=== PATIENT | female | born 1955 ===

== ENCOUNTER 2016-12-16 06:14 | Emergency (ER) | payer MEDICARE, MEDICAID ==
[2016-12-16 06:14] VITALS: BMI 24.0
[2016-12-16 06:19] VITALS: BP 130/74; PULSE 68; RESP 16; TEMP 98.4; O2SAT 99
[2016-12-16] MEDS ORDERED: Lidocaine 5% Patch TD STA (07:47)
--- NOTE | 2016-12-16 07:53 | ED PDOC ---
Upper Extremity Pain/Injury Time Seen by Provider: 12/16/16 07:16 Chief Complaint (Nursing): Upper Extremity Problem/Injury Chief Complaint (Provider): Upper Extremity Problem/Injury History Per: Patient History/Exam Limitations: no limitations Onset/Duration Of Symptoms: Days (x8 months) Current Symptoms Are (Timing): Still Present Additional Complaint(s): Quin Parsons is a 61 year old female with a past medical history of anemia, diabetes, and ulcers presenting to the ED for an evaluation of chronic left upper arm pain radiating to her left shoulder and chest starting 8 months ago, worsening over the past month. The patient states she hears a cracking in her left shoulder, she has associated difficulty breathing due to the pain, and was shaking uncontrollably when EMS saw her. The patient also states when she visited the emergency room at [facility] 3 weeks prior to arrival, a physician found a needle stuck in her left upper arm. The patient then explained that she had a tummy tuck surgery performed in 2002 that went wrong causing the needle to be stuck in her left upper arm. Post surgery, the patient reports being in a coma for 5 months. The patient was told to visit her PMD and was prescribed Neurontin 600 mg which she takes once a day, Tylenol 500 mg 1 tablet taken once every 4 hours, and Naprosyn which she takes 2 or 3 times a day for the pain, all taken without relief. The patient is requesting medication for her pain. PMD: Inna Frausto MD Past Medical History Reviewed: Historical Data, Nursing Documentation, Vital Signs Vital Signs: Last Vital Signs Temp 98.4 F 12/16/16 06:15 Pulse 68 12/16/16 06:15 Resp 16 12/16/16 06:15 BP 130/74 12/16/16 06:15 Pulse Ox 99 12/16/16 06:15 - Medical History PMH: Anxiety, Arthritis (BACK), Atrial Fibrillation, Back Problems, Bipolar Disorder, COPD, Dementia, Depression, Diabetes, Diverticulitis, Gastrointestinal Ulcer, HTN, Malignancy, Obstructive Bowel, Pneumonia, Pulmonary Embolism, Seizures, Chronic Pain (on Methadone) Denies: Anemia, HIV, Hyperthyroidism, Hypothyroidism, Chronic Kidney Disease , Sickle Cell Disease, Sexually Transmitted Disease - Surgical History Surgical History: Appendectomy, CABG, Tonsillectomy Denies: Carotid Endarterectomy, Cholecystectomy, Coronary Stent - Family History Family History: States: Unknown Family Hx - Social History Current smoker - smoking cessation education provided: Yes Alcohol: None Drugs: Denies - Immunization History Hx Tetanus Toxoid Vaccination: No Hx Influenza Vaccination: No Hx Pneumococcal Vaccination: No - Home Medications Home Medications: Ambulatory Orders Medication Instructions Recorded Levothyroxine [Synthroid] 75 mcg PO DAILY 10/06/15 Montelukast [Singulair] 10 mg PO DAILY 10/06/15 Trazodone HCl 150 mg PO HS 10/06/15 Venlafaxine [Effexor XR] 150 mg PO DAILY 10/06/15 Estrogen,Con/M-Progest Acet 1 tab PO DAILY 12/11/15 [Prempro 0.45-1.5 mg Tablet] Gabapentin 600 mg PO DAILY 12/11/15 Telmisartan [Micardis] 40 mg PO DAILY 03/14/16 Esomeprazole Magnesium [Nexium] 40 mg PO DAILY 07/18/16 Metoprolol Succinate 50 mg PO DAILY 08/01/16 Hydrochlorothiazide [Microzide] 12.5 mg PO DAILY 09/05/16 Nicotine 7 mg/24 hr [Nicoderm CQ] 1 patch TD DAILY #30 patch 09/05/16 Naproxen [Naprosyn] 1 tab PO BID PRN #20 tab 11/28/16 DiphenhydrAMINE [Benadryl] 25 mg PO Q6 PRN #20 cap 12/08/16 Epinephrine [Epipen] 0.3 mg IJ ONCE PRN #1 auto.injct 12/08/16 predniSONE [predniSONE Tab] 40 mg PO DAILY #8 tab 12/08/16 Acetaminophen [Tylenol 325mg tab] 650 mg PO Q6H PRN #50 tab 12/16/16 Ketorolac Tromethamine [Toradol] 10 mg PO Q6H PRN #19 tab 12/16/16 Lidocaine 5% [Lidoderm] 1 ea TD DAILY #10 patch 12/16/16 - Allergies Allergies/Adverse Reactions: Allergies Allergy/AdvReac Type Severity Reaction Status Date / Time iodine Allergy Intermediate ANAPHYLAXIS Verified 11/28/16 12:58 Sulfa (Sulfonamide Allergy Intermediate ANAPHYLAXIS Verified 11/28/16 12:58 Antibiotics) codeine Allergy Verified 11/28/16 12:58 seafood Allergy Intermediate ANAPHYLAXIS Uncoded 08/28/17 12:58 yucca Allergy Uncoded 12/08/16 12:11 Review of Systems ROS Statement: Except As Marked, All Systems Reviewed And Found Negative Respiratory: Positive for: Other (difficulty breathing) Musculoskeletal: Positive for: Arm Pain (left upper arm pain radiating to left shoulder and chest) Physical Exam - Reviewed Nursing Documentation Reviewed: Yes Vital Signs Reviewed: Yes - Physical Exam Appears: Positive for: No Acute Distress Head Exam: Positive for: ATRAUMATIC, NORMOCEPHALIC Eye Exam: Negative for: PERRL (pupils: 2.5 mm nonreactive) ENT: Positive for: Normal ENT Inspection Neck: Positive for: Normal, Supple Cardiovascular/Chest: Positive for: Regular Rate, Rhythm, Chest Non Tender. Negative for: Murmur Respiratory: Positive for: Normal Breath Sounds. Negative for: Respiratory Distress Back: Positive for: Normal Inspection Extremity: Positive for: Normal ROM Neurologic/Psych: Positive for: Alert, Oriented (x3). Negative for: Motor/ Sensory Deficits - ECG O2 Sat by Pulse Oximetry: 99 (RA) Pulse Ox Interpretation: Normal Medical Decision Making Medical Decision Making: Time: 07:16 Impression: Upper Extremity Problem/Injury Plan: * Lidoderm 1 ea TD Once * Toradol 60 mg IM * Tylenol 650 mg PO * Reevaluation From previous visit, Xrays show no acute fracture, joints are normal, pt does have two pieces of foreign body material in her left upper arm. Scribe Attestation: Documented by Tanisha Ley, acting as a scribe for Soledad Cavazos MD. Provider Scribe Attestation: All medical record entries made by the Scribe were at my direction and personally dictated by me. I have reviewed the chart and agree that the record accurately reflects my personal performance of the history, physical exam, medical decision making, and the department course for this patient. I have also personally directed, reviewed, and agree with the discharge instructions and disposition. 8.10a - feeling better after Toradol, Tylenol and Lidocaine. Disposition - Clinical Impression Clinical Impression: Chronic shoulder pain - Patient ED Disposition Is Patient to be Admitted: No Doctor Will See Patient In The: Office Counseled Patient/Family Regarding: Diagnosis, Need For Followup, Rx Given - Disposition Referrals: Lucinda Frausto MD [Medical Doctor] - Disposition: Routine/Home Disposition Time: 08:10 Condition: STABLE Prescriptions: Acetaminophen [Tylenol 325mg tab] 650 mg PO Q6H PRN #50 tab PRN Reason: Pain, Mild (1-3) Ketorolac Tromethamine [Toradol] 10 mg PO Q6H PRN #19 tab PRN Reason: Pain, Moderate (4-7) Lidocaine 5% [Lidoderm] 1 ea TD DAILY #10 patch Instructions: Chronic Pain (ED) Forms: [facility] (Lithuanian) - POA Present On Arrival: None
[2016-12-16] MEDS ORDERED: Lidocaine 5% Patch TD ONE (07:57)
== END 2016-12-16 08:30 | disposition home or self-care (01) ==
LOC: H.ER 06:14
DX: M25.512 Pain in left shoulder (principal)
CPT/HCPCS: 96372; 99283; J1885

== ENCOUNTER 2017-03-27 00:26 | Emergency (ER) | payer MEDICARE, MEDICAID ==
[2017-03-27 00:27] VITALS: BMI 31.1
[2017-03-27 00:33] VITALS: BP 120/47; PULSE 78; RESP 18; TEMP 98; O2SAT 96
--- NOTE | 2017-03-27 00:48 | ED PDOC ---
Upper Extremity Pain/Injury Time Seen by Provider: 03/27/17 00:39 Chief Complaint (Nursing): Upper Extremity Problem/Injury Chief Complaint (Provider): left shoulder pain History Per: Patient Additional Complaint(s): 61 year old female with history of chronic left shoulder pain presents with worsening pain to left shoulder since yesterday. Patient states she also ran out percocet and needs refill. She states she fell yesterday injuring left shoulder and she also states 4 days ago she injured shoulder while do PT exercises. She denies chest pain, SOB or KWON. Past Medical History Reviewed: Historical Data, Nursing Documentation, Vital Signs Vital Signs: Last Vital Signs Temp 98 F 03/27/17 00:31 Pulse 78 03/27/17 00:31 Resp 18 03/27/17 00:31 BP 120/47 L 03/27/17 00:31 Pulse Ox 96 03/27/17 00:31 - Medical History PMH: Anemia (on iron infusion weekly last taken 01/30/17), Anxiety, Arthritis ( BACK), Atrial Fibrillation, Back Problems, Bipolar Disorder, Cardia Arrhythmia, COPD, Dementia, Depression, Diabetes, Diverticulitis, Gastrointestinal Ulcer, HTN, Obstructive Bowel, Pneumonia, Seizures, Chronic Pain (on Methadone) - Surgical History Surgical History: Appendectomy, Tonsillectomy Denies: Carotid Endarterectomy, Cholecystectomy, Coronary Stent Other surgeries: left shoulder surgery - Family History Family History: States: Unknown Family Hx - Living Arrangements Living Arrangements: With Family - Social History Current smoker - smoking cessation education provided: No Alcohol: None Drugs: Denies - Home Medications Home Medications: Ambulatory Orders Medication Instructions Recorded Levothyroxine [Synthroid] 75 mcg PO DAILY 10/06/15 Montelukast [Singulair] 10 mg PO DAILY 10/06/15 Trazodone HCl 150 mg PO HS 10/06/15 Venlafaxine [Effexor XR] 150 mg PO DAILY 10/06/15 Estrogen,Con/M-Progest Acet 1 tab PO DAILY 12/11/15 [Prempro 0.45-1.5 mg Tablet] Gabapentin 600 mg PO DAILY 12/11/15 Telmisartan [Micardis] 40 mg PO DAILY 03/14/16 Esomeprazole Magnesium [Nexium] 40 mg PO DAILY 07/18/16 Metoprolol Succinate 50 mg PO DAILY 08/01/16 DiphenhydrAMINE [Benadryl] 25 mg PO Q6 PRN #20 cap 12/08/16 Epinephrine [Epipen] 0.3 mg IJ ONCE PRN #1 auto.injct 12/08/16 Acetaminophen [Tylenol 325mg tab] 650 mg PO Q6H PRN #50 tab 12/16/16 Cholecalciferol (Vitamin D3) 50,000 unit PO QWK 01/31/17 [Vitamin D3] traMADol [Ultram] 50 mg PO .Q4-6 PRN 01/31/17 Naproxen [Naprosyn] 500 mg PO BID #20 tab 03/27/17 - Allergies Allergies/Adverse Reactions: Allergies Allergy/AdvReac Type Severity Reaction Status Date / Time iodine Allergy Intermediate ANAPHYLAXIS Verified 01/31/17 06:52 Sulfa (Sulfonamide Allergy Intermediate ANAPHYLAXIS Verified 01/31/17 06:52 Antibiotics) codeine Allergy ANAPHYLAXIS Verified 01/31/17 08:41 seafood Allergy Intermediate ANAPHYLAXIS Uncoded 01/31/17 06:52 [email or web address] Allergy ANAPHYLAXIS Uncoded 01/31/17 06:52 Review of Systems ROS Statement: Except As Marked, All Systems Reviewed And Found Negative Musculoskeletal: Positive for: Shoulder Pain (left) Physical Exam - Reviewed Nursing Documentation Reviewed: Yes Vital Signs Reviewed: Yes - Physical Exam Appears: Positive for: Well, Non-toxic, No Acute Distress Skin: Negative for: Rash Eye Exam: Positive for: Normal appearance Neck: Positive for: Normal, Painless ROM Extremity: Positive for: Other (full rom left shoulder with pain, strong left hand oracle database consultant) Neurologic/Psych: Positive for: Alert, Oriented - ECG O2 Sat by Pulse Oximetry: 96 Pulse Ox Interpretation: Normal - Other Rad Left shoulder x-ray X-Ray: Interpreted by Me, Viewed By Me X-Ray Interpretation: no fx, no dis Medical Decision Making Medical Decision Makin61 year old with acute on chronic left shoulder pain Plan: IM toradol X-ray left shoulder [employer] reviewed - patient has filled multiple rx for percocet and other narcotic pain meds. She was informed that no narcotic meds will be dispensed or prescrbed today. Patient agrees with toradol IM. Patient is aware of x-ray results. All questions answered. Rx naprosyn given. Patient was referred to pain management. Disposition - Clinical Impression Clinical Impression: Shoulder pain - Patient ED Disposition Is Patient to be Admitted: No Counseled Patient/Family Regarding: Studies Performed, Diagnosis, Need For Followup, Rx Given - Disposition Referrals: Stanley Rosado MD [Staff Provider] - Sera Kelly MD [Staff Provider] - Disposition: Routine/Home Disposition Time: 01:06 Condition: STABLE Additional Instructions: Take rx meds as directed. Follow up with pain management or with orthopedic surgeon. Prescriptions: Naproxen [Naprosyn] 500 mg PO BID #20 tab Instructions: Shoulder Pain (ED), Chronic Pain (ED) Forms: [employer] (Polish)
--- NOTE | 2017-03-27 09:10 | RAD ---
PROCEDURE: Radiographs of the Left Shoulder HISTORY: trauma COMPARISON: No prior. FINDINGS: BONES: No fracture. JOINTS: Glenohumeral and acromioclavicular joints preserved. SOFT TISSUES: Normal. OTHER FINDINGS: None. IMPRESSION: No demonstrated fracture or dislocation.
== END 2017-03-27 01:31 | disposition home or self-care (01) ==
LOC: H.ER 00:26
DX: M25.512 Pain in left shoulder (principal); E11.9 Type 2 diabetes mellitus without complications; F03.90 Unspecified dementia, unspecified severity, without behavioral disturbance, psychotic disturbance, mood disturbance, and anxiety; F31.9 Bipolar disorder, unspecified; F41.9 Anxiety disorder, unspecified; G89.29 Other chronic pain; I10 Essential (primary) hypertension; I48.91 Unspecified atrial fibrillation; J44.9 Chronic obstructive pulmonary disease, unspecified
CPT/HCPCS: 73030; 96372; 99282; J1885

== ENCOUNTER 2018-03-06 06:05 | Day surgery (SDC) | payer MEDICARE, MEDICAID ==
[2017-11-28 08:53] VITALS: BMI 25.9
[2018-03-06] MEDS ORDERED: Lactated Ringer's 1,000 ML IV ONE (07:51)
[2018-03-06] MEDS ORDERED: Lidocaine 1% 5ml Abboject ONE (08:39)
[2018-03-06] MEDS ORDERED: Succinylcholine 200 mg/10 ml Inj IV ONE (08:39)
[2018-03-06] MEDS ORDERED: Midazolam 2 MG/2 ML VIAL ONE (08:39)
[2018-03-06] MEDS ORDERED: Neostigmine 1:1000 (1 mg/ml) Inj ONE (08:39)
[2018-03-06] MEDS ORDERED: Lidocaine 4% (Laryng-O-Jet) Kit MM ONE (08:39)
[2018-03-06] MEDS ORDERED: Rocuronium 10 mg/ml (5 ml) ONE (08:39)
[2018-03-06] MEDS ORDERED: Phenylephrine 10 mg/ml Inj ONE (08:39)
[2018-03-06] MEDS ORDERED: Etomidate 20 mg/10ml Inj IV ONE (08:39)
[2018-03-06] MEDS ORDERED: Ropivacaine 0.5% 30ML IV ONE (09:04)
[2018-03-06] MEDS ORDERED: EPINEPHrine 1:1000 Nasal Sol(30mL) ONE (09:32)
[2018-03-06] MEDS ORDERED: Lidocaine 1% w Epi 1:100,000 Inj ONE (09:32)
[2018-03-06] MEDS ORDERED: ceFAZolin IV 1 gm in Dextrose 2 GM/100 ML BAG IVPB ONE (09:32)
[2018-03-06] MEDS ORDERED: Lidocaine 1% Inj (20ml) ONE (09:32)
[2018-03-06] MEDS ORDERED: Lidocaine 1.5%-Epinephrine 1:200,000 5 ML AMP IJ ONE (11:38)
--- NOTE | 2018-03-06 12:41 | PCM.SURG1 ---
Surgeon's Initial Post Op Note - Surgeon's Notes Surgeon: Stanley Rosado MD Fender Mechanic: Angel Norton PA-C Type of Anesthesia: General Endo Pre-Operative Diagnosis: Right shoulder RTC tear Operative Findings: see op report Post-Operative Diagnosis: same as pre-op dx Operation Performed: Right shoulder artrhoscopy, double row Rotator cuff repair, subacromial decompression, debridement, biceps tenotomy Specimen/Specimens Removed: none Estimated Blood Loss: EBL {In ML}: 4 Date of Surgery/Procedure: 03/06/18 Time of Surgery/Procedure: 11:30
[2018-03-06] MEDS: HYDROmorphone 0.5 mg/0.5 ml ISec IVP PRN ×3 (12:55→14:42)
--- NOTE | 2018-03-06 12:59 | PCM.ANESB1 ---
Interscalene Block - Brachial Plexus Date of Procedure: 03/06/18 Anesthesiologist: Dr. Lambert Pre-Procedure Diagnosis: Labral tear right shoulder Post-Procedure Diagnosis: Labral tear right shoulder Procedure Performed: Interscalene Block of Brachial Plexus Right - Procedure Interscalene Block of Brachial Plexus: This procedure was explained to the patient that it is for post-operative pain management. Consent was obtained after a thorough discussion with the patient regarding the benefits and possible complications of local anesthetic block of the Brachial Plexus at the Interscalene area. The patient was brought to the Operating Room and standard monitors were applied. Time out was held with the circulating nurse to confirm the correct surgery and appropriate block. After applying Oxygen by nasal cannula and administering IV Sedation, the patient's head was gently rotated away from the right operative shoulder and the anterior scalene groove was carefully palpated. The ultrasound transducer was then applied to the skin in the transverse plane and the brachial plexus was visualized lateral to the carotid artery and in between the anterior and middle scalene muscles. After identification,the anterior lateral portion of the neck was prepped with Chloraprep solution and Lidocaine 1% was injected subcutaneously for topical analgesia. At this point, a # 22 gauge Stimuplex 2 inches insulated needle was inserted into the interscalene groove and directed in a caudal and midline direction. The needle was inserted lateral to the ultrasound transducer in-plane towards the brachial plexus in a [id number] direction. Needle advancement was performed carefully under direct ultrasound visualization. Nerve stimulator was used and twitched of the affected extremity including the hand brachialis muscles, biceps and the deltoid was obtained at a current of 0.3MA. After repeated negative aspiration, 5cc of0.5% Ropivacaine were injected and this was followed with 15cc of0.5% Ropivacaine. Under ultrasound guidance the local anesthetics were observed surrounding the roots of the brachial plexus. The needle was removed intact and sterile dressing was applied. The patient had stable vital signs, was conscious and in no apparent distress. The patient tolerated the interscalene block of the bracheal plexus well with stable vital signs and was prepared for subsequent surgery.
[2018-03-06] MEDS ORDERED: Sodium Chloride 0.9% 1,000 ML IV SCH (13:00)
--- NOTE | 2018-03-06 15:20 | CP.PCM.HP ---
<Wayne Deras - Last Filed: 03/06/18 16:35> History of Present Illness - History of Present Illness History of Present Illness: CC: chest pain HPI: This is a 61 year old female with PMHx of HTN, Hypothyroidism, Depression, Anxiety, and Hx of Hep C treated in 2014 ([address] Dr. Woodruff), admitted with Labral tear of her right shoulder for Right shoulder arthroscopy and rotator cuff repair by Dr. Rosado. PMD: Dr. Frausto Patient was evaluated post operatively in recovery. Was seen sleeping, a rousable, as per staff was agitated upon waking up from anesthesia and given Ativan. Hemodynamically stable. Present on Admission - Present on Admission Any Indicators Present on Admission: No Past Patient History - Infectious Disease Hx of Infectious Diseases: None - Past Medical History & Family History Past Medical History?: Yes - Past Social History Smoking Status: Light Smoker < 10 Cigarettes Daily - CARDIAC Hx Cardiac Disorders: Yes Hx Angina: No Hx Cardia Arrhythmia: Yes Hx Circulatory Problems: No Hx Heart Attack: No Hx Heart Murmur: No Hx Heart Transplant: No Hx Hypertension: Yes Hx Hypotension: No Hx Internal Defibrillator: No Hx Peripheral Vascular Disease: No Other/Comment: vascular surgery on left leg which became infected. - PULMONARY Hx Respiratory Disorders: Yes Hx Chronic Obstructive Pulmonary Disease (COPD): Yes Hx Lung Cancer: No Hx Pneumonia: Yes Hx Pulmonary Edema: No Hx Pulmonary Embolism: (not sure) Hx Respiratory Aspiration: No Hx Respiratory Tract Infection: No Hx Tuberculosis: No Other/Comment: LIGHT SMOKER - NEUROLOGICAL Hx Neurological Disorder: Yes HX Cerebrovascular Accident: No Hx Dementia: Yes Hx Dizziness: No Hx Meningitis: No Hx Paralysis: No Hx Seizures: Yes Hx Syncope: Yes Other/Comment: FORGETFUL - HEENT Hx HEENT Problems: Yes (Wears glasses) Hx Cataracts: No Hx Deafness: No Hx Difficulty Chewing: No Hx Epistaxis: No Hx Glaucoma: No Hx Macular Degeneration: No - RENAL Hx Chronic Kidney Disease: No Hx Neurogenic Bladder: No Hx Pyelonephritis: No Hx Renal (Kidney) Cancer: No Hx Renal Failure: No - ENDOCRINE/METABOLIC Hx Endocrine Disorders: Yes Hx Adrenal Cancer: No Hx Diabetes Insipidus: No Hx Diabetes Mellitus Type 1: No Hx Diabetes Mellitus Type 2: No (Taking no meds at present time) Hx Hyperthyroidism: No Hx Hypothyroidism: Yes Hx Systemic Lupus Erythematosus: No - HEMATOLOGICAL/ONCOLOGICAL Hx Blood Disorders: Yes Hx AIDS: No Hx Anemia: Yes (on iron infusion weekly last taken 01/30/17) Hx Blood Transfusions: Yes Hx Blood Transfusion Reaction: No Hx Bruising: No Hx Cancer: No Hx Chemotherapy: No Hx Cirrhosis: No Hx Gum Bleeding: No Hx Hemophilia: No Hx Hepatitis A: No Hx Hepatitis B: No Hx Hepatitis C: Yes (history) Hx Human Immunodeficiency Virus (HIV): No Hx Leukemia: No Hx Metastesis: No Hx Shingles: No Hx Sickle Cell Disease: No Hx Unexplained Bleeding: No Hx von Willebrand's Disease: No - INTEGUMENTARY Hx Dermatological Problems: No Hx Basil Cell: No Hx Stevenson: No Hx Cellulitis: No Hx Eczema: No Hx Melanoma: No Hx Psoriasis: No Hx Squamous Cell: No - MUSCULOSKELETAL/RHEUMATOLOGICAL Hx Musculoskeletal Disorders: Yes Hx Arthritis: Yes (BACK) Hx Back Pain: Yes (CHRONIC BACK PAIN POST FALL) Hx Degenerative Joint Disease: No Hx Falls: Yes Hx Fractures: No Hx Gout: No Hx Herniated Disk: No Hx Myasthenia Gravis: No Hx Osteoarthritis: No Hx Osteomyelitis: No Hx Osteoporosis: No Hx Rhabdomyolysis: No Hx Rheumatoid Arthritis: No Hx Spinal Stenosis: No Hx Unsteady Gait: No - GASTROINTESTINAL Hx Gastrointestinal Disorders: Yes Hx Bowel Surgery: No Hx Clostridium Difficile: No Hx Colitis: No Hx Colostomy: No Hx Diverticulitis: Yes Hx Esophageal Varices: No Hx Fatty Liver Disease: No Hx Gastroesophageal Reflux: Yes Hx Hemorrhoids: No Hx Ileostomy: No Hx Irritable Bowel: No Hx Liver Failure: No HX Swallowing Problems: No Hx Ulcer: Yes Other/Comment: Failed bariatric surgery which ended in an ICU stay. intestinal obstruction - GENITOURINARY/GYNECOLOGICAL Hx Genitourinary Disorders: No Hx Bladder Cancer: No Hx Bladder Stone: No Hx Cervical Cancer: No Hx Hematuria: No Hx Incontinence: No Hx Ovarian Cancer: No Hx Postmenopausal Bleeding: No Hx Reproductive Disorders: No Hx Sexually Transmitted Disorders: No Hx Uterine Cancer: No Hx Urinary Tract Infection: No - PSYCHIATRIC Hx Psychophysiologic Disorder: Yes Hx Anxiety: Yes Hx Bipolar Disorder: Yes Hx Depression: Yes Hx Emotional Abuse: No Hx Physical Abuse: No Hx Sexual Abuse: No Hx Substance Use: No - SURGICAL HISTORY Hx Surgeries: Yes Hx Abdominal Aortic Aneurysm Repair: No Hx Amputation: No Hx Angiogram: No Hx Angioplasty: No Hx Appendectomy: Yes Hx Arteriovenous Shunt: No Hx Arthroscopy: No Hx Bile Duct Stent: No Hx Breast Biopsy: No Hx Cataract Extraction: No Hx Cardiac Catheterization: No Hx Carotid Endarterectomy: No Hx Section: Yes (1981) Hx Cholecystectomy: No Hx Coronary Stent: No Hx Dilation and Curettage: No Hx Eye Surgery: No Hx Femoral-Popliteal Bypass Graft: No Hx Gastric Bypass Surgery: No Hx Herniorrhaphy: (cannot remember) Hx Hysterectomy: No Hx Joint Replacement: No Hx Kidney Transplant: No Hx Liver Transplant: No Hx Mastectomy: No Hx Musculoskeletal Surgery: Yes Hx Open Heart Surgery: No Hx Open Reduction Internal Fixation: No Hx Orthopedic Surgery: Yes Hx Parathyroidectomy: No Hx Penile Implant: No Hx Pulmonary Surgery: No Hx Splenectomy: Yes Hx Thyroidectomy: Yes Hx Tonsillectomy: Yes Hx Tubal Ligation: No Hx Valve Replacement: No Hx Vascular Surgery: No Hx Vascular Access Device: No Other/Comment: Abdominal surgery - ANESTHESIA Hx Anesthesia: Yes (hard to fall asleep) Hx Anesthesia Reactions: No Hx Malignant Hyperthermia: No Meds Allergies/Adverse Reactions: Allergies Allergy/AdvReac Type Severity Reaction Status Date / Time iodine Allergy Intermediate ANAPHYLAXIS Verified 08/12/17 10:50 Sulfa (Sulfonamide Allergy Intermediate ANAPHYLAXIS Verified 08/12/17 10:50 Antibiotics) codeine Allergy ANAPHYLAXIS Verified 08/12/17 10:50 seafood Allergy Intermediate ANAPHYLAXIS Uncoded 08/12/17 10:50 [email or web address] Allergy ANAPHYLAXIS Uncoded 08/12/17 10:50 Physical Exam - Constitutional Appears: No Acute Distress - Head Exam Head Exam: NORMAL INSPECTION - Eye Exam Eye Exam: Periorbital tenderness - ENT Exam ENT Exam: Mucous Membranes Moist - Neck Exam Neck exam: Positive for: Full Rom - Respiratory Exam Respiratory Exam: Clear to Auscultation Bilateral. absent: Accessory Muscle Use, Rales, Wheezes - Cardiovascular Exam Cardiovascular Exam: REGULAR RHYTHM, +S1, +S2. absent: Systolic Murmur - Extremities Exam Extremities exam: Positive for: normal capillary refill, pedal pulses present. Negative for: pedal edema - Back Exam Additional comments: Right shoulder wrapped in bandage- clean/dry/in tact. Good radial pulse and capillary refill. Motor and sensory of right upper extremity in tact. Results - Vital Signs Recent Vital Signs: Last Vital Signs Temp 97.5 F L 03/06/18 13:50 Pulse 81 03/06/18 14:05 Resp 18 03/06/18 14:05 BP 102/62 03/06/18 14:05 Pulse Ox 99 03/06/18 14:05 Assessment & Plan - Assessment and Plan (Free Text) Assessment: his is a 61 year old female with PMHx of HTN, Hypothyroidism, Depression, Anxiety, and Hx of Hep C treated in 2014 (with Dr. Woodruff), admitted with Labral tear of her right shoulder for Right shoulder arthroscopy and rotator cuff repair by Dr. Rosado. -Monitor vitals -Pain management -Admitted to Med/Surg for observation -IV fluids <Fonseca,Arthur K - Last Filed: 03/07/18 18:46> Results - Vital Signs Recent Vital Signs: Last Vital Signs Temp 98 F 03/07/18 16:24 Pulse 78 03/07/18 16:24 Resp 18 03/07/18 16:24 BP 128/76 03/07/18 09:22 Pulse Ox 95 03/07/18 16:24 Assessment & Plan - Assessment and Plan (Free Text) Assessment: Patient was personally seen and examined by me in rounds with residents. Available labs and diagnostic data reviewed. Case, Patient's condition and management plan discussed with residents in rounds. Agree with resident's progress note. Plan: As ordered.
--- NOTE | 2018-03-06 23:56 | OP ---
PROCEDURE DATE: 03/06/2018 SURGEON: Stanley Alarcon M.D. CUPOLA PATCHER: Angel Norton PA-C PREOPERATIVE DIAGNOSES: 1. Right shoulder rotator cuff tear. 2. Synovitis. 3. Impingement. POSTOPERATIVE DIAGNOSES: 1. Right shoulder synovitis. 2. Capsular adhesions. 3. Type 2 superior labrum anterior and posterior tear. 4. Grade 3 chondromalacia, humeral head and glenoid. 5. Full-thickness supraspinatus tear. 6. Impingement. 7. Subacromial bursitis. PROCEDURES: 1. Right shoulder arthroscopy, double row rotator cuff repair. 2. Subacromial decompression with acromioplasty. 3. Anterior capsular lysis of adhesions. 4. Complete synovectomy. 5. Biceps tenotomy. ANESTHESIA TYPE: General interscalene block. ESTIMATED BLOOD LOSS: 10 mL. SPECIMENS: None. COMPLICATIONS: None. INDICATIONS: After failing a course of nonoperative therapy, the patient elected to undergo the above procedures. In the office the risks and possible complications of the shoulder arthroscopy were discussed in detail with the patient. These risks include, but are not limited to, continued pain, lack of motion, infection, vascular injury, and nerve injury including axillary nerve dysfunction, reflex sympathetic dystrophy, compartment syndrome, limb loss, and . The patient expressed an understanding of the risks and possible benefits of the procedure, and was also made aware of the alternatives to surgery. An informed consent was obtained, and was checked immediately preop. Procedure 1: The patient was correctly identified in the holding area and the right shoulder was marked with the surgeon's initials. The patient was transported to the operating room and placed in the supine position and under general anesthesia anesthesia and regional interscalene block was used. Examined under anesthesia. A preoperative orthopedic examination revealed a passive range of motion of 170 degrees of forward elevation, 50 degrees of external rotation, and 160 degrees of abduction. Stability examination revealed no instability. Procedure 2: The patient was then placed in a beach chair position utilizing the beach chair positioning device. The patient's head was stabilized and the indicated upper extremity was prepped and draped in the standard surgical fashion. The anatomic structures were outlined with a skin marker, and 1% lidocaine with epinephrine was injected into the posterior, anterior, and lateral portal areas. A #21-gauge spinal needle was placed in the glenohumeral joint from the posterior portal and 10 mL of sterile saline was injected into the glenohumeral joint. Return of fluid indicated correct needle placement into the joint. The needle was then withdrawn and a #11 blade was used to make a 1-cm incision at the posterior portal site. Next, the arthroscopic blunt trocar was inserted into the glenohumeral joint. A #21-gauge spinal needle was placed through the anterior rotator interval, and the anterior portal was made with a #11 blade after the spinal needle was withdrawn. A 7-mm cannula was then inserted after the skin incision was made and the arthroscopic probe was then used to examine the internal structures of the glenohumeral joint. With the shoulder in abducted and externally rotated position, the articular surface of the rotator cuff was visualized. The arthroscope and probe were then switched from posterior to anterior. The posterior labrum, posterior capsule, and biceps anchor reflection was then inspected with the arthroscope in the anterior portal position. Examination of the glenohumeral joint revealed: 1. Synovitis. 2. Capsular adhesions. 3. Type 2 superior labrum anterior and posterior tear. 4. Grade 3 chondromalacia of humeral head and glenoid. 5. Full-thickness supraspinatus tear. Anterior capsular lysis of adhesions: The radiofrequency device was introduced through the anterior portal and a radiofrequency anterior capsular rotator interval lysis of adhesions was performed. The anterior capsule was released to optimize range of motion. The radiofrequency device was used to provide hemostasis during this procedure. After the lysis of adhesions, passive range of motion measured 180 degrees of forward elevation, 70 degrees of external rotation, and 160 degrees of abduction. Chondral debridement: The full radius shaver was used to mechanically debride loose chondral edges of the humeral head and glenoid, to a stable border. Extreme care was taken to not disrupt the adjacent chondral surface. The edge of the debrided area was probed to ensure chondral stability. Biceps Tenotomy: Upon careful arthroscopic evaluation of biceps tendon and its anchor site at the labrum, it was noted to be highly frayed and tears not amenable to repair. Due to tissue quality and the patient's age, decision was made to proceed with biceps tenotomy. Using arthroscopic scissors, biceps tenotomy was successfully performed. The loose edges of labrum were debrided using radiofrequency probe and arthroscopic shaver. Synovectomy: Excessive glenohumeral synovitis was cleared with a 4.0 mm full radius shaver. The hypertrophic, erythematous synovium was resected. Hemostasis was maintained with the radiofrequency device. Examination of the subacromial space revealed: 1. Full-thickness supraspinatus tear. 2. Impingement. 3. Bursitis. Bursectomy: Visualization of the subacromial space was difficult due to excessive bursitis. A bursectomy was performed using a combination of radiofrequency device as well as a 4.0-mm full radius motorized shaver. Decompression: The soft tissue on the undersurface of the acromion was debrided utilizing the 4.0-mm full radius shaver and the radiofrequency device was used for hemostasis. At this point, the coracoacromial ligament was released with the radiofrequency device and the acromial branch of the thoracoacromial artery was coagulated with the same instrument. Subacromial decompression was performed with a 4.0-mm conical george using both the medial portal and the "cutting-block" precision acromioplasty technique from the posterior portal. The undersurface of the acromion was resected to a flat, smooth surface to allow unrestricted excursion of the rotator cuff. Double row rotator cuff repair: After adequate subacromial decompression, attention was then turned to the rotator cuff tear, which was easily visualized after adequate bursectomy had been performed. An auxiliary lateral portal was placed 2 cm posterior to the original lateral portal, after a correct "-man's angle" was determined using a transdeltoid 21 gauge spinal needle. Arthroscopic soft tissue releases were performed using an elevator at the coracohumeral ligament insertion and superior glenoid to free up the rotator cuff to provide adequate excursion to support a repair to the greater tuberosity. Next, the greater tuberosity was gently debrided with a combination of the 4.0 mm straight shaver and radiofrequency device, and the bone was denuded to a bleeding surface using the 4.0-mm george. The lateral margin of the rotator cuff tear was debrided to a smooth and stable tendon surface using the 4.0-mm shaver. Two 4.5-mm Arthrex corkscrew suture anchors were placed with the proper "-man's angle" into the greater tuberosity, and a mattress suture from each anchor was passed through supraspinatus 10 mm medial to the torn edge. These anchors formed the medial row of the double row repair. The arm was abducted to 70 degrees, and the leading edge of the cuff was drawn to its proper insertion on the greater tuberosity. The #2 FiberWire mattress sutures were tied with standard arthroscopic knot tying techniques - Anthony knots and half hitches using a knot pusher. The remaining sutures were secured to the tuberosity with two 4.5-mm PushLock absorbable anchors, which were placed with standard technique into the lateral aspect of the greater tuberosity approximately 1 cm lateral to the medial row anchors. One suture strand from each knot was crossed to the diagonal PushLock anchor along with the suture strand from the corresponding anchor directly medial. This linking of the medial and lateral row formed a "suture bridge" rotator cuff repair. The ends of the remaining sutures were then cut. The shoulder was put through a passive ROM, and the rotator cuff repair was noted to be stable through a ROM of 130/50. No prominence of the suture knots or of rotator cuff tissue was noted to impinge during abduction and internal rotation. Closure: The subacromial space was then irrigated with sterile saline, and closure was instituted with sutures. A dressing was placed consisting of Xeroform, 4x4's, ABD pads, and tape. The patient was placed in a sling with an ABD pad in the axilla. The patient was then placed in a supine position and extubated without incident. The patient was transferred to the recovery room in stable condition, having tolerated the procedure well. Plan 2: Postoperatively, the patient will be maintained in an abduction sling, also provided with my rehab protocol, defining the restriction and sling use for 6 weeks. Explosives Operator Statement: During this procedure, I was assisted by Angel Norton, who assisted in positioning the patient on the operating room table as well as transferring the patient from the operating room table to the recovery room stretcher. In addition, Angel Norton, assisted me during the actual operative procedure by positioning the patient's extremity to allow for easier arthroscopic access to all areas of the joint. The presence of Angel Norton, as my operative anesthesiology physician assistant, was medically necessary to ensure the utmost safety of the patient in the pre, intra-, and postoperative periods. Stanley Rosado MD [facility] # [id number]
[2018-03-07] MEDS ORDERED: Levothyroxine 75 MCG TAB PO SCH (06:30)
[2018-03-07] MEDS ORDERED: Pneumococcal 23-Valent Vaccine IM ONE (09:00)
[2018-03-07] MEDS ORDERED: Venlafaxine 150 mg ER Cap PO SCH (09:00)
[2018-03-07] MEDS ORDERED: Influenza Vaccine (5 YR UP)/PF 60 MCG/0.5 ML SYR IM ONE (09:00)
[2018-03-07] MEDS: Oxycodone/Acetaminophen 5/325 mg Tab PO PRN ×2 (09:01→14:30)
[2018-03-07 09:22] VITALS: BP 128/76; TEMP 98
--- NOTE | 2018-03-07 11:00 | PN ---
DATE: 03/07/2018 SUBJECTIVE: The patient seen and examined. Interim events noted. The patient remains on regular medical floor, ambulatory, but the patient complains of shoulder pain. No chest pain or shortness of breath. The patient does complain of pain but does not seem to be in acute distress from pain. The patient is ambulatory. PHYSICAL EXAMINATION: GENERAL: The patient is in no acute distress. VITAL SIGNS: Stable. HEART: S1, S2 normal and regular. LUNGS: Good bilateral air exchange. ABDOMEN: Soft, nontender. EXTREMITIES: The patient is status post surgery. No sign of distal acute complication. No edema. No calf swelling. No neuromuscular distal compromise. CENTRAL NERVOUS SYSTEM: Exam is essentially unchanged. DIAGNOSTIC DATA: Available diagnostic data reviewed. ASSESSMENT AND PLAN: Overall, the patient is medically stable. Plan as ordered. Arthur Fonseca MD
[2018-03-07 16:25] VITALS: PULSE 78; RESP 18; O2SAT 95
[2018-03-07] MEDS ORDERED: Patient's Own Med (Trazodone Hcl [Trazodone Hcl] 150 MG) PO SCH (22:00)
== END 2018-03-07 16:35 | disposition home or self-care (01) ==
LOC: H.OPSURG 06:05 → UNDOADMOB 13:26 → H.MEDSURG1 13:26 → UNDODISOB 03-07 16:35 → H.OPSURG 03-07 16:35
PROVIDERS: ATTEND Orthopaedic Surgery
DX: M75.41 Impingement syndrome of right shoulder (principal); M65.811 Other synovitis and tenosynovitis, right shoulder; M75.101 Unspecified rotator cuff tear or rupture of right shoulder, not specified as traumatic; M75.51 Bursitis of right shoulder; S43.431A Superior glenoid labrum lesion of right shoulder, initial encounter; X58.XXXA Exposure to other specified factors, initial encounter; M94.211 Chondromalacia, right shoulder; Z23 Encounter for immunization
CPT/HCPCS: 29820; 29825; 29826; 29827; 29828; 97161; 97165; 97530; C1713; G0008; G8978; G8979; G8987; G8988; J0330; J0690; J1170; J2250; J2370; J2710; J2765; J3010; J7030; J7120; Q2035